=== PATIENT | male | born 1985 | race Caucasian/White ===

== ENCOUNTER 2022-08-19 09:34 | Inpatient (IN) | payer BC, MEDICAID ==
[~2022-08-19] VITALS: Ht 175.3 cm; Wt 93.1 kg
[2022-08-19] MEDS ORDERED: LEVETIRACETAM 1000MG PREMIX 100 ML IV ONE (09:45)
[2022-08-19] MEDS ORDERED: METOCLOPRAMIDE HCL 10MG/2ML VIAL IV ONE (10:45)
[2022-08-19] MEDS ORDERED: KETOROLAC 30MG/ML VIAL IV ONE (10:45)
[2022-08-19 11:45] LABS: BASOPHILS % 0.3 % (0.0-2.0); EOSINOPHILS % 0.6 % (0.0-5.0); HEMATOCRIT. 43.4 % (42.0-52.0); LYMPHOCYTES % 15.1 % (20.0-50.0); MEAN CORPUSCULAR HEMOGLOBIN 31.1 pg (28.0-32.0); MEAN CORPUSCULAR VOLUME 89.6 fL (80.0-94.0); MEAN PLATELET VOLUME 7.3 fl (7.4-10.4); MONOCYTES % 4.2 % (2.0-8.0); NEUTROPHILS % 79.8 % (40.0-76.0); PLATELET 236 x1000/uL (130-400); RED BLOOD CELL COUNT 4.84 mill/uL (4.7-6.1); RED CELL DISTRIBUTION WIDTH 12.7 % (11.6-14.6)
[2022-08-19 12:06] LABS: CHLORIDE 103 mEq/L (98-107)
[2022-08-19 12:31] LABS: ETHANOL BLOOD < 10 mg/dL
[2022-08-19] MEDS ORDERED: ACETAMINOPHEN WITH CODEINE 300/30MG TABLET PO ONE (13:00)
[2022-08-19 13:09] LABS: CLARITY URINE TURBID (CLEAR); COLOR URINE YELLOW (YELLOW); KETONES URINE NEGATIVE (NEGATIVE); LEUKOCYTE ESTERASE URINE NEGATIVE (NEGATIVE); NITRITE URINE NEGATIVE (NEGATIVE); OCCULT BLOOD URINE NEGATIVE (NEGATIVE); PROTEIN URINE TRACE (NEGATIVE); SPECIFIC GRAVITY URINE 1.022 (1.005-1.030); UROBILINOGEN URINE 0.2 E.U./dL (0.2-1.0)
[2022-08-19 13:42] LABS: *AMPHETAMINES SCREEN URINE NEGATIVE (NEGATIVE); *BARBITURATES SCREEN URINE PRESUMTIVE POSITIVE (NEGATIVE); *BENZODIAZEPINES SCREEN URINE NEGATIVE (NEGATIVE); *COCAINE SCREEN URINE NEGATIVE (NEGATIVE); CANNABINOID URINE SCREEN NEGATIVE (NEGATIVE); METHADONE URINE SCREEN NEGATIVE (NEGATIVE); OPIATES URINE SCREEN NEGATIVE (NEGATIVE); PHENCYCLIDINE URINE SCREEN NEGATIVE (NEGATIVE)
[2022-08-19] MEDS ORDERED: MORPHINE SULFATE 4 MG/ML CPJ (NOT FOR IM USE) IV ONE (14:00)
[2022-08-19 17:00] VITALS: BP 121/73
[2022-08-19] MEDS ORDERED: LAMO200T50 MT (18:26)
[2022-08-19] MEDS ORDERED: DIVA-75 MT (18:26)
[2022-08-19] MEDS ORDERED: PHEN15TA25 MT (18:26)
[2022-08-19] MEDS ORDERED: LEVE10006 MT (18:26)
[2022-08-19 20:00] VITALS: BP 124/74
[2022-08-19] MEDS ORDERED: PHENOBARBITAL 30 MG TABLET PO NR (23:45)
[2022-08-19] MEDS ORDERED: ACETAMINOPHEN 325MG TABLET PO PRN (23:45)
[2022-08-20] VITALS: BP 105/69
[2022-08-20 04:00] VITALS: BP 111/67
[2022-08-20 08:00] VITALS: BP 110/75
[2022-08-20 08:05] LABS: BASOPHILS % 0.4 % (0.0-2.0); EOSINOPHILS % 1.5 % (0.0-5.0); HEMATOCRIT. 45.6 % (42.0-52.0); HEMOGLOBIN. 15.5 g/dL (14.0-18.0); MEAN CORPUSCULAR HEMOGLOBIN 30.5 pg (28.0-32.0); MEAN CORPUSCULAR VOLUME 89.7 fL (80.0-94.0); MEAN PLATELET VOLUME 7.1 fl (7.4-10.4); MONOCYTES % 8.4 % (2.0-8.0); NEUTROPHILS % 61.7 % (40.0-76.0); PLATELET 243 x1000/uL (130-400); RED BLOOD CELL COUNT 5.08 mill/uL (4.7-6.1); RED CELL DISTRIBUTION WIDTH 12.8 % (11.6-14.6)
[2022-08-20] MEDS ORDERED: LAMOTRIGINE 100MG TABLET PO SCH (09:00)
[2022-08-20] MEDS ORDERED: PANTOPRAZOLE SODIUM 40 MG/VIAL IV SCH (09:00)
[2022-08-20] MEDS ORDERED: DIVALPROEX SODIUM 500MG DR TABLET PO SCH (09:00)
[2022-08-20] MEDS ORDERED: LEVETIRACETAM 500MG TABLET PO SCH (09:00)
[2022-08-20] MEDS ORDERED: PHENOBARBITAL 100MG TABLET PO SCH (09:00)
[2022-08-20 12:00] VITALS: BP 118/72
[2022-08-20] MEDS ORDERED: DIVA-75 MT (12:31)
[2022-08-20] MEDS ORDERED: PHEN15TA25 MT (12:31)
[2022-08-20] MEDS ORDERED: LEVE10006 MT (12:31)
[2022-08-20] MEDS ORDERED: ACET-2708 MT (12:31)
[2022-08-20] MEDS ORDERED: LAMO200T50 MT (12:31)
[2022-08-20 16:00] VITALS: BP 127/80
[2022-08-20 17:12] VITALS: BP 118/72
== END 2022-08-20 17:46 | disposition home or self-care (01) | DRG 101 ==
LOC: ER 09:34 → 6WST 14:06
PROVIDERS: ADMIT Internal Medicine; ATTEND Internal Medicine
DX: G40.509 Epileptic seizures related to external causes, not intractable, without status epilepticus (principal); S06.9XAS Unspecified intracranial injury with loss of consciousness status unknown, sequela; Z91.199 Patient's noncompliance with other medical treatment and regimen due to unspecified reason; G93.89 Other specified disorders of brain
CPT/HCPCS: 36415; 80053; 80305; 80320; 81003; 82962; 83880; 85025; 93005; 99285; C9113; J1885; J1953; J2270; J2765; G0480